=== PATIENT | female | born 1960 | race Caucasian/White ===

== ENCOUNTER → 2018-12-26 | Outpatient (CLI) | payer BC ==
--- NOTE | 2018-12-29 17:51 | MAM ---
EXAM DESCRIPTION: 3D Screening BILATERAL : Digital Mammography. CLINICAL HISTORY: 58 years Female ANNUAL SCREENING . No complaints. No personal history of breast cancer. Remote family history of breast cancer. Menarche age 10. First childbirth 89. Menopause age 47. HRT less than 5 years ago.. Lifetime risk of developing breast cancer (Tyrer-Cuzick model)(%): 6.0. COMPARISON: 2-D digital screening bilateral mammography 01/25/2015.. TECHNIQUE: Bilateral CC and MLO projection full-field images, digital tomosynthesis mammographic technique. Bilateral digital 2-D full-field MLO images. CAD not available for tomosynthesis or 2-D images. FINDINGS: The breast parenchymal density pattern is: Scattered areas of fibroglandular density. No skin thickening or nipple retraction. Intramammary right axillary tail lymph node. Mole markers posterior right breast. Bilateral solitary microcalcifications. No new focal, stellate mass or density, focal asymmetry , and no suspicious microcalcifications bilaterally. Stable mammograms compared to prior study. Taking into account, differences in mammographic technique. IMPRESSION: Benign exam. BIRAD CATEGORY: 2 BENIGN FINDINGS. RECOMMENDATIONS: FOLLOW UP: Routine digital bilateral mammographic screening, one year interval from December 2018. Written communication explaining the IMPRESSION and follow-up, will be mailed to the patient and referring health care provider. According to the [employer], yearly mammograms are recommended starting at age 40 and continuing as long as a woman is in good health. Any breast change noted on a breast self-exam should be reported promptly to the patient's healthcare provider. Breast MRI is recommended for women with an approximately 20-25% or greater lifetime risk of breast cancer, including women with a strong family history of breast or ovarian cancer and women who have been treated for Hodgkin's disease. A negative mammographic report should not delay tissue diagnosis in patients with significant clinical history or physical findings. Extremely dense breast tissue limits the sensitivity of digital mammography. Electronically signed by: Martin Garnica MD 12/29/2018 5:50 PM PRESS TENDER
== END ==
LOC: MAMMO 11:00
PROVIDERS: ATTEND Family Medicine
DX: Z12.31 Encounter for screening mammogram for malignant neoplasm of breast (principal)

== ENCOUNTER → 2020-03-17 | Outpatient (CLI) | payer BC | LOC: GMALP 11:32 | PROVIDERS: ATTEND Family Medicine | DX: D51.0 Vitamin B12 deficiency anemia due to intrinsic factor deficiency (principal); E03.9 Hypothyroidism, unspecified; Z13.1 Encounter for screening for diabetes mellitus ==

== ENCOUNTER → 2020-04-12 | Outpatient (CLI) | payer BC ==
--- NOTE | 2020-04-13 15:09 | MAM ---
EXAM DESCRIPTION: 3D Screening BILATERAL : Digital Mammography. CLINICAL HISTORY: 60 years Female screening . No complaints. Remote family history of breast cancer. Menarche age 10. Childbirth age 16. Menopause age 46. HRT 5 mm ago.. Lifetime risk of developing breast cancer (Tyrer-Cuzick model)(%): 5.7. COMPARISON: Bilateral screening digital breast tomosynthesis December 2018. TECHNIQUE: Bilateral CC and MLO projection full-field images, digital tomosynthesis mammographic technique. Bilateral digital 2-D full-field MLO images. CAD available for 2-D images. FINDINGS: The breast parenchymal density pattern is: Scattered areas of fibroglandular density. Axillary nodes. Node in the right axillary tail. Stable intramammary nodes.. No skin thickening or nipple retraction No new focal, stellate mass or density, focal asymmetry , and no suspicious microcalcifications bilaterally. Stable mammograms compared to prior study. IMPRESSION: Benign exam. BIRAD CATEGORY: 2 BENIGN FINDINGS. RECOMMENDATIONS: FOLLOW UP: Routine digital bilateral mammographic screening, one year interval from April 2020. Written communication explaining the IMPRESSION and follow-up, will be mailed to the patient and referring health care provider. According to the [employer], yearly mammograms are recommended starting at age 40 and continuing as long as a woman is in good health. Any breast change noted on a breast self-exam should be reported promptly to the patient's healthcare provider. Breast MRI is recommended for women with an approximately 20-25% or greater lifetime risk of breast cancer, including women with a strong family history of breast or ovarian cancer and women who have been treated for Hodgkin's disease. A negative mammographic report should not delay tissue diagnosis in patients with significant clinical history or physical findings. Extremely dense breast tissue limits the sensitivity of digital mammography. Electronically signed by: Martin Garnica MD 04/13/2020 3:08 PM SUSTAINMENT LOGISTICS ANALYST
== END ==
LOC: MAMMO 08:53
PROVIDERS: ATTEND Family Medicine
DX: Z12.31 Encounter for screening mammogram for malignant neoplasm of breast (principal)